=== PATIENT | female | born 1990 | race African-American/Black ===

== ENCOUNTER 2018-01-04 07:06 | Inpatient (IN) ==
[2018-01-04] MEDS ORDERED: BUTORPHANOL 2 MG/ML VIAL IV PRN (08:05)
[2018-01-04] MEDS ORDERED: ONDANSETRON 4 MG/2 ML VIAL IV PRN (08:05)
[2018-01-04] MEDS ORDERED: MEPERIDINE 50 MG/1 ML VIAL IV PRN (08:05)
[2018-01-04] MEDS ORDERED: AMPICILLIN INJ 2,000 MG in SODIUM CHLORIDE 0.9% 100 ML IV ONE (08:07)
[2018-01-04] MEDS ORDERED: LACTATED RINGERS 1,000 ML IV SCH (08:30)
[2018-01-04] MEDS ORDERED: OXYTOCIN/LR 20 UNIT/1,000 ML BAG IV SCH (08:30)
[2018-01-04 08:56] LABS: Basophils % 0.4 % (0.0-0.8); Eosinophils # 0.3 10*3/uL (0.0-0.87); Eosinophils % 3.9 % (0.00-10.9); Hematocrit 31.6 VOL% (35.7-47.0); Hemoglobin 9.8 GM/DL (12.0-16.0); Immature Granulocytes % 0.6 %; Immature Granulocytes Absolute 0.05 #; Lymphocytes % 25.1 % (21.3-54.2); Mean Corpuscular Hemoglobin 26 PG (27-34); Mean Corpuscular Volume 84.7 FL (87-102); Mean Platelet Volume 11.3 FL (9.6-12.0); Monocytes # 0.6 10*3/uL (0.11-0.8); Monocytes % 7.3 % (1.7-12.7); Neutrophils % 62.7 % (38.7-73.9); Platelet Count 296 T/CUMM (130-400); Red Blood Count 3.73 MC/CUMM (3.8-5.5); Red Cell Distribution Width 15.5 % (9.3-17.3); White Blood Count 7.9 T/CUMM (4-12)
[2018-01-04] MEDS ORDERED: DINOPROSTONE VAG GEL 10 MG SYRINGE VAG ONE ×2 (09:18→09:45)
[2018-01-04 09:20] LABS: Albumin 2.6 G/DL (3.4-5.0); Bilirubin,Total 0.4 MG/DL (0.2-1.0); Calcium 8.5 MG/DL (8.5-10.1); Osmolality,Calculated 271.7 MOS/KG (273-304); Potassium 3.9 MMOL/L (3.5-5.1); Uric Acid 5.4 MG/DL (2.6-6.0)
[2018-01-04] MEDS ORDERED: AMPICILLIN INJ 1,000 MG in SODIUM CHLORIDE 0.9% 100 ML IV SCH (12:30)
[2018-01-04] MEDS ORDERED: CITRIC ACID/SODIUM CITRATE 30 ML UDCUP PO ONE ×2 (12:31→12:33)
[2018-01-04] MEDS ORDERED: LACTATED RINGERS 1,000 ML IV ONE ×2 (12:31→12:33)
[2018-01-04] MEDS ORDERED: FAMOTIDINE 20 MG/2 ML VIAL IV ONE ×2 (12:31→12:33)
[2018-01-04] MEDS ORDERED: hydrOXYzine HCL 25 MG/1 ML VIAL IM PRN (12:33)
[2018-01-04] MEDS ORDERED: diphenhydrAMINE 50 MG/1 ML VIAL IV PRN ×2 (12:33)
[2018-01-04] MEDS ORDERED: PROMETHAZINE 25 MG/1 ML VIAL IM ONE (12:33)
[2018-01-04] MEDS ORDERED: ePHEDrine 50 MG/ML AMP IV PRN (12:33)
[2018-01-04] MEDS ORDERED: fentaNYL 2 MCG/ROPIV 0.2% EPID 150 ML EPIDURAL SCH (13:00)
[2018-01-04 14:10] LABS: Apearance,Urine CLEAR (Clear); Bilirubin,Urine Negative (Negative); Blood, Urine Negative (Negative); Glucose,Urine (UA) Negative (Negative); Ketones,Urine 20 mg/dL (Negative); Mucus,Urine Occasional /LPF (Occasional); Nitrite,Urine Negative (Negative); Protein,Urine Negative; RBC,Urine <1 /HPF (0-4); Squamous Epithelial Cell,Urine Occasional /HPF (0-10); Urine Color Yellow (Yellow); Urine Urobilinogen < 2.0 EU/DL (0.2-1.0); WBC,Urine <1 /HPF (0-6)
[2018-01-04] MEDS ORDERED: miSOPROStol 200 MCG TABLET ONE (15:45)
[2018-01-04] MEDS ORDERED: OXYTOCIN/LR 20 UNIT/1,000 ML BAG IV ONE (18:21)
[2018-01-04] MEDS ORDERED: LANOLIN 50% CREAM 0.3 OZ TUBE TOP PRN (19:48)
[2018-01-04] MEDS ORDERED: BENZOCAINE 20%/MENTHOL 0.5% SPRAY 56 GM CAN TOP PRN (19:48)
[2018-01-04] MEDS ORDERED: BISACODYL 10 MG SUPP RECTAL PRN (19:48)
[2018-01-04] MEDS ORDERED: HYDROCORTISONE 2.5% RECTAL CREAM 30 GM TUBE TOP PRN (19:48)
[2018-01-04] MEDS ORDERED: oxyCODONE/ACETAMINOPHEN 5-325 MG TABLET PO PRN (19:48)
[2018-01-04] MEDS ORDERED: DIPH/TET/ACEL PERT BOOSTER VACCINE 0.5 ML VIAL IM ONE (19:48)
[2018-01-04] MEDS ORDERED: WITCH HAZEL PADS 100/JAR TOP PRN (19:48)
[2018-01-04] MEDS ORDERED: RHO(D) IMMUNE GLOBULIN 300 MCG SYRINGE IM ONE (19:48)
[2018-01-04] MEDS ORDERED: ACETAMINOPHEN 325 MG TABLET PO PRN (19:48)
[2018-01-04] MEDS ORDERED: MEASLES/MUMPS/RUBELLA VACCINE 0.5 ML VIAL SUBCUT ONE (19:48)
[2018-01-04] MEDS: IBUPROFEN 800 MG TABLET PO PRN (20:09)
[2018-01-04] MEDS: oxyCODONE/ACETAMINOPHEN 5-325 MG TABLET PO PRN (21:24)
[2018-01-04] MEDS: DOCUSATE SODIUM 100 MG CAPSULE PO SCH (23:55)
[2018-01-05 06:42] LABS: Basophils % 0.2 % (0.0-0.8); Eosinophils # 0.2 10*3/uL (0.0-0.87); Eosinophils % 2.4 % (0.00-10.9); Hematocrit 23.3 VOL% (35.7-47.0); Hemoglobin 7.4 GM/DL (12.0-16.0); Immature Granulocytes % 0.5 %; Immature Granulocytes Absolute 0.05 #; Lymphocytes # 2.5 10*3/uL (1.4-4.0); Mean Corpuscular HGB Conc 31.8 GM/DL (32-36); Mean Corpuscular Hemoglobin 27 PG (27-34); Mean Corpuscular Volume 85.3 FL (87-102); Mean Platelet Volume 11.3 FL (9.6-12.0); Monocytes # 0.7 10*3/uL (0.11-0.8); Monocytes % 7.6 % (1.7-12.7); NRBC # 0.02 10*3/uL; Neutrophils # 5.7 10*3/uL (1.4-7.4); Neutrophils % 62.3 % (38.7-73.9); Platelet Count 233 T/CUMM (130-400); Red Blood Count 2.73 MC/CUMM (3.8-5.5); Red Cell Distribution Width 15.6 % (9.3-17.3); White Blood Count 9.1 T/CUMM (4-12)
[2018-01-05] MEDS: IBUPROFEN 800 MG TABLET PO PRN ×2 (08:15→21:37)
[2018-01-05] MEDS ORDERED: SODIUM CHLORIDE 0.9% 1,000 ML IV PRN (09:34)
[2018-01-05] MEDS: FERROUS SULFATE 325 MG TABLET PO SCH ×3 (09:42→20:46)
[2018-01-05] MEDS: DOCUSATE SODIUM 100 MG CAPSULE PO SCH ×2 (09:42→20:46)
[2018-01-05] MEDS: ACETAMINOPHEN/CODEINE 300-30 MG TABLET PO PRN ×2 (09:46→16:26)
[2018-01-05 18:34] LABS: Hematocrit 24.7 VOL% (35.7-47.0)
[2018-01-05] MEDS: oxyCODONE/ACETAMINOPHEN 5-325 MG TABLET PO PRN (21:39)
[2018-01-06] MEDS: oxyCODONE/ACETAMINOPHEN 5-325 MG TABLET PO PRN (04:13)
[2018-01-06] MEDS: IBUPROFEN 800 MG TABLET PO PRN ×2 (04:13→16:04)
[2018-01-06 09:26] VITALS: BP 118/97
[2018-01-06] MEDS: FERROUS SULFATE 325 MG TABLET PO SCH ×2 (10:01→16:04)
[2018-01-06] MEDS: DOCUSATE SODIUM 100 MG CAPSULE PO SCH (10:01)
[2018-01-06] MEDS: ACETAMINOPHEN/CODEINE 300-30 MG TABLET PO PRN ×2 (10:19→16:04)
== END 2018-01-06 17:17 | disposition home or self-care (01) | DRG 560 ==
LOC: N.LDOUT 07:06 → N.LD 07:11 → N.OB 21:17
PROVIDERS: ADMIT Obstetrics & Gynecology; ATTEND Obstetrics & Gynecology